=== PATIENT | female | born 1945 | race Caucasian/White ===

== ENCOUNTER 2016-12-20 13:40 | Day surgery (SDC) | payer MEDICARE ==
[~2016-12-20] VITALS: Ht 160 cm; Wt 62.0 kg
--- NOTE | 2016-12-20 08:41 | PCM.HPANE ---
Patient Data Surgeon Admitting Provider: Attending Provider:Junior Tian MD Primary Care Physician:Jamin Pond MD Other Provider:Azucena Matthews Anesthesia Reason for Visit Epigastic Pain Ht/WT & BMI Body Mass Index Allergies Coded Allergies: prochlorperazine edisylate (Verified Allergy, Intermediate, eyes roll back , 12/20/16) prochlorperazine maleate (Verified Allergy, Intermediate, eyes roll back, 12/20/16) fluoxetine HCl (Verified Allergy, Unknown, eyes blinked non stop, 12/20/16) Past Anesthesia History Anesthesia History: Denies:: Abnormal Airway, Anesthesia Reactions, Difficult Intubation Diabetes History Hx Diabetes?: No MRSA MRSA: No Medications Hypertension Medication: No Home Meds Incl Beta Antonio: No Reported Medications Triamterene/HCTZ 37.5-25 mg 1 Each Capsule1 Capsule PO DAILY Ref 0 12/20/16 Mirtazapine 30 Mg Loikft18 Mg PO HS Ref 0 12/20/16 Triamcinolone Acet (Triamcinolone Acetonide Ointment)1 Applic/0.25 Gm Oint1 Applic TOP DIRECTED #60 GM Ref 0 12/19/16 Temazepam 15 Mg Kczmuql60 Mg PO HS PRN For Insomnia 30 Days Ref 0 12/19/16 Omeprazole 40 Mg Capsule.dr40 Mg PO DAILY Ref 0 12/19/16 Naproxen 500 Mg Bxi419 Mg PO BID PRN For Pain Ref 0 12/19/16 Lamotrigine (Lamictal)150 Mg Wyouie093 Mg PO BID #30 TABLET Ref 0 12/19/16 Aspirin 81 Mg Tnimqt40 Mg PO DAILY Ref 0 12/19/16 Discontinued Reported Medications Estradiol (Estrace)0.5 Mg Tablet0.5 Mg VAGINAL DAILY 30 Days Ref 0 12/19/16 Discontinued Scripts oxyCODONE-Acetaminophen 5-325 mg 1 Each Tablet0.5-1 Tab PO Q6H PRN For Pain #14 TABLET Prov:Ester Mclaughlin MD 03/28/16 History History of ENT Problems?: No HEENT History: Denies:: Abnormal Airway Difficult Intubation Hx of Heart Problems?: No Cardiovascular History: Denies:: Congestive Heart Failure Hypertension Hx of Respiratory Problem?: No Respiratory History: Denies:: Tuberculosis Hx of GI Problems?: Yes Hx of Problems?: No Hx Surgeries?: Yes (Hysterectomy 1979) Hx Diabetes: No Hx Alcohol Use: YesHx Substance Use: No Smoking Status: Never Smoker Have You Smoked inLast 12 mo: No Stop/Bang Treated for Sleep Apnea?: No Do You Have a CPAP Machine?: No Risk Assessment Category Category 1A: Patient has history of documented sleep apnea, and HAS NOT received any narcotic, sedative or anesthesia administration during this stay. Category 1B: Patient has history of documented sleep apnea, and HAS received any narcotic , sedative or anesthesia administration during this stay Category 2: Patient has SUSPECTED Obstructive Sleep Apnea, and HAS received any narcotic , sedative or anesthesia administration during this stay. Category 3: Patient has SUSPECTED Obstructive Sleep Apnea and HAS NOT received narcotic, sedative or anesthesia administration during this stay. Category 4: Outpatient in Procedural Areas with known sleep apnea or who screen positive for High Risk via the STOP/BANG questionnaire. Exam Exam General Appearance: Alert, Oriented X3, Cooperative, No Acute Distress HEENT/AIRWAY: MP 2 Lungs: Clear to Auscultation, Normal Air Movement Heart: Exam Unremarkable, Regular Rate/Rhythm, No Murmurs/Rubs/Gallops Plan Impression Patient chart reviewed, patient interviewed and anesthestic plan with risks, benefits, and alternatives discussed, and informed consent obtained. ASA Physical Status: ASA2 Mod Systemic Disease Anesthetic Plan: MAC Bene/Risks/Altern/Consents: Yes HP Complete Prior to Induction: Yes Jonh Martínez MD Dec 20, 2016 08:41
[~2016-12-20 13:40] MED LIST: ASPI-973 PO; ESTR0.5T4 VAGINAL; KEN1O TOP; LAMO150T PO; Lactated Ringer's 1,000 ML IV ONE; NPR500T PO; OMEP40CA36 PO; RES15 PO
[2016-12-20] MEDS ORDERED: Ketamine 10 mg/mL 20 mL Inj ONE (13:41)
[2016-12-20] MEDS ORDERED: Propofol 10,000 mCg/mL 20 mL Inj ONE (13:41)
[2016-12-20] MEDS ORDERED: TRIA1CAP5 PO (14:09)
[2016-12-20] MEDS ORDERED: MIRT30TA6 PO (14:09)
[2016-12-20 14:10] VITALS: BP 129/63; PULSE 74; RESP 16; O2SAT 98
[2016-12-20] MEDS ORDERED: Lactated Ringer's 1,000 ML IV SCH (14:26)
[2016-12-20] MEDS ORDERED: Ondansetron 2 mg/mL 2 mL Inj IVPUSH PRN (14:30)
[2016-12-20] MEDS ORDERED: MetoCLOpramide 5 mg/mL 2 mL Inj IVPUSH PRN (14:30)
[2016-12-20 15:19] VITALS: BP 104/49; PULSE 68; RESP 16; O2SAT 93
[2016-12-20 15:30] VITALS: BP 113/57; PULSE 72; RESP 16; O2SAT 100
[2016-12-20 15:34] VITALS: BP 117/67; PULSE 66; RESP 16; O2SAT 97
--- NOTE | 2016-12-20 18:25 | ENDO ---
[address] [address] ENDOSCOPY PROCEDURE PATIENT: SONAM MANZANO : 1945 MR#: [id number] ADMIT: 12/20/2016 JOB ID: [id number] DATE: 12/20/2016 PRIMARY PROVIDER: Jamin Pond MD PROCEDURE: Esophagogastroduodenoscopy with biopsy. INDICATIONS: A 71-year-old female with chronic dyspepsia reporting for endoscopic interrogation. EQUIPMENT: GIF H 180 J. SEDATION: Monitored anesthesia as provided by Dr. Jonh Martínez. COMPLICATIONS: None identified. PROCEDURE IN DETAIL: After the risks and benefits were explained, written and verbal informed consent was obtained. The patient was brought into the endoscopy suite and placed into the left lateral decubitus position. Sedation was achieved using the above-stated medications with the addition of oxygen via nasal cannula. The scope was introduced into the mouth through the bite block, and advanced to the second portion of the duodenum. The scope was slowly withdrawn to carefully examine the mucosa for any defects or lesions. Retroflexed views were accomplished in the stomach. The stomach was decompressed. The scope removed from the patient who tolerated the procedure well. FINDINGS: 1. Duodenum: No pathology identified from the bulb through to the second portion. 2. Stomach: The patient had a mild diffuse gastropathy identified throughout. Random biopsy was taken for exclusion of Helicobacter or other pathology. Retroflexed views of the LES were unremarkable. No gastric outlet obstruction. No mass lesions. No ulcers. 3. Esophagus: The squamocolumnar junction correlated with the top of the gastric folds. The GEJ was at about 40 cm from the incisors. No acute erosive changes. No strictures. No mass lesions. The esophagus appeared unremarkable. ENDOSCOPIC DIAGNOSES: 1. Mild gastropathy. 2. Otherwise visually unremarkable esophagogastroduodenoscopy. RECOMMENDATIONS: 1. Await histopathology. 2. Continue bowel regimen as discussed in clinic. 3. Follow up with Nelson Magdaleno in 3-4 weeks to review response to therapy.
--- NOTE | 2016-12-21 08:50 | PCM.ANEP1 ---
Post Anesthesia Phase 1 PACU Phase 1 Assessment Anesthetic Administered: MAC Level of Alertness: Awake, talking VALDIVIA's with Equal Strength: Yes Pain: No Nausea or Vomiting: No Oxygen Delivery: Nasal Cannula Lungs: Clear to Auscultation, Normal Air Movement Dermatome Level: Full Sensation Jonh Martínez MD Dec 21, 2016 08:50
--- NOTE | 2016-12-21 08:51 | PCM.ANEP2 ---
Post Anesthesia Evaluation ASA/CMS Post Anesthesia VS in Patient's Normal Range?: Yes Resp Stable; Airway Patent?: Yes CV Function & Hydration Stable: Yes Mental Status Recovered?: Yes Pain control Satisfactory?: Yes N/V Control Satisfactory?: Yes Jonh Martínez MD Dec 21, 2016 08:50
--- NOTE | 2016-12-22 15:07 | PATH ---
SURGICAL PATHOLOGY Attending Physician:Agata Nugent CASE STATUS: Signed Out PATIENT NAME: SONAM MANZANO PID: [id number] : 1945 DATE COLLECTED:12/20/2016 00:00 SPECIMEN: Gastric, Biopsy CLINICAL HISTORY: 1). GASTRIC BIOPSY FINAL DIAGNOSIS: 1.STOMACH, BIOPSY: BODY-TYPE MUCOSA WITH NO DIAGNOSTIC ABNORMALITY. Negative for Helicobacter organisms. Negative for intestinal metaplasia. Negative for dysplasia and malignancy. ICD10 CODE R10.9 GROSS DESCRIPTION: The specimen is received in one formalin filled container labeled with the patient's name, sublabeled "gastric" and consists of a 0.5 x 0.3 x 0.2 CM portion of tissue which is entirely submitted in one cassette. 12/21/2016 [facility] MICRO DESCRIPTION: See diagnosis. ICD-9 CODES: CPT CODES: 1: 08610 Electronically Signed Out Nita Butler MD [facility] Pathology [facility] [address], [place] [address] Technical component performed at [facility], [facility] [address], [place], [address]
== END 2016-12-20 23:59 | disposition home or self-care (01) ==
LOC: END 13:40
PROVIDERS: ATTEND Internal Medicine Gastroenterology
DX: R10.13 Epigastric pain (principal); F31.9 Bipolar disorder, unspecified; Z79.82 Long term (current) use of aspirin; Z79.899 Other long term (current) drug therapy
CPT/HCPCS: 43239; 88305; J7120